=== PATIENT | male | born 1940 | race Caucasian/White ===

== ENCOUNTER 2016-06-26 13:53 | Inpatient (IN) | payer MEDICARE, OTHER ==
[~2016-06-26] VITALS: Ht 172.7 cm; Wt 118.7 kg
[2016-06-30] MEDS ORDERED: ZOVIRAX400 MG PO (15:12)
[2016-06-30] MEDS ORDERED: VFEND200 MG PO (15:13)
[2016-06-30] MEDS ORDERED: LEVAQUIN DPS500 MG PO (15:13)
[2016-06-30] MEDS ORDERED: LOPRESSOR DPS50 MG PO (15:13)
[2016-06-30] MEDS ORDERED: MAG-OX400 MG PO (15:13)
[2016-06-30] MEDS ORDERED: COLACE-DPS100 MG PO (15:14)
[2016-06-30] MEDS ORDERED: FISH OIL 1,2001 EACH PO (15:14)
[2016-06-30] MEDS ORDERED: LIPITOR80 MG PO (15:14)
[2016-06-30] MEDS ORDERED: CENTRUM SILVER1 EAC1 PO (15:14)
[2016-06-30] MEDS ORDERED: ZOFRAN8 MG PO (15:15)
[2016-06-30] MEDS ORDERED: COZAAR DPS50 MG PO (15:15)
[2016-06-30] MEDS ORDERED: FLOMAX DPS0.4 MG PO (15:15)
[2016-06-30] MEDS ORDERED: COMPAZINE10 MG PO (15:15)
[2016-06-30] MEDS ORDERED: MEGACE DPS800 MG/20 PO (15:16)
[2016-06-30] MEDS ORDERED: MIRALAX DPS17 GM PO (15:16)
[2016-06-30] MEDS ORDERED: ULTRAM DPS50 MG PO (15:16)
[2016-06-30] MEDS ORDERED: MAALOX DPS30 ML PO (15:17)
[2016-06-30] MEDS ORDERED: SURFAK DPS240 MG PO (15:17)
[2016-06-30] MEDS ORDERED: TYLENOL DPS325 MG PO (15:17)
[2016-06-30] MEDS ORDERED: NITROSTAT0.4 MG SL (15:17)
--- NOTE | 2016-07-04 07:54 | ER ---
ADMIT: 06/26/2016 RM/LOC: 432 [facility] MR#: [id number] [address] [address] RONNI MORRIS [address] [address] Emergency Room Report SEX: M AGE: 75 : 1940 DATE: 06/26/2016 TIME: 1353 hours. Please refer to my T-sheet for complete H and P. Briefly, the patient is a 75- year-old who was sent over here for a high fever. He had the flu shot. 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 He went in to Oncology Clinic with high fever, they sent him over here for our evaluation. They shea blood cultures, they shea some lab which we will not repeat because it was drawn just prior to them arriving in our ER. The patient said he just feels kind of yuck and does not feel well, a little bit of cough, otherwise he has been doing okay. He did vomit once also. PHYSICAL EXAMINATION: VITAL SIGNS: His blood pressure is 133/57, pulse 107, respirations 20, and sat 93% on room air. GENERAL: He is in no acute distress. HEENT: Grossly normal. LUNGS: Slightly coarse with a little bit of wheezes. ABDOMEN: Soft, really nontender. EXTREMITIES: He has trace edema bilaterally. NEURO: He is alert, oriented, nonfocal. EMERGENCY DEPARTMENT COURSE: We did the full sepsis pathway here including fluids, blood cultures x2 had already been sent. Influenza came back negative. EKG was sinus rhythm, rate 107, no changes. CBC was normal except white count 1.5, hemoglobin 7, and platelets 29. Chemistries normal except BUN 28, glucose 188, and creatinine 1.6. The rest of his labs are pending at this time. Antibiotics will be started since the blood cultures were drawn. He will get a 30 mL/kg of IV normal saline. He already had a liter before he arrived in our Emergency Department. We will count this and continue as his blood pressure seems to be improved here. He seems to be doing pretty well. I gave him 1 g of Tylenol and I talked Dr. Ruiz, will admit to the hospital. ASSESSMENT: 1. Neutropenic fever. 2. Pancytopenia. 3. Sepsis. 4. Oncology patient. PLAN: Admit to the hospital. Jan Hancock MD/ ritesh JOB #: [id number] CC: Seth Bray MD, Attending Physician Seth Bray MD, Family Physician
--- NOTE | 2016-07-05 09:17 | CO ---
ADMIT: 06/26/2016 RM/LOC: 432 [facility] MR#: [id number] [address] [address] RONNI MORRIS [address] [place] [address] Consultation SEX: M AGE: 75 : 1940 DATE OF CONSULTATION: 06/27/2016 ATTENDING PHYSICIAN: Seth Bray MD CONSULTING PHYSICIAN: Miguel Schafer MD REASON FOR CONSULTATION: AML, sepsis. HISTORY OF PRESENT ILLNESS: This is a pleasant, 75-year-old male, patient of mine, who was recently diagnosed with AML within the last month. He has undergone 10 days of Dacogen chemotherapy, first cycle beginning June 03, 2016, and also recently had a day 22 response bone marrow scan reveal less than 4% blasts, which was a good result. The patient was seen in clinic yesterday with documented fever of 102 degrees, elevated respiratory rate, elevated heart rate, and complaints of dry heaves. He was found to be neutropenic and thus he was admitted yesterday with neutropenic fever with concerns for sepsis. He did receive appropriate fluid resuscitation in my clinic as well as in the emergency room, approximately 4 L given and started on broad-spectrum antibiotics per sepsis protocol. Today, the patient does appear to be improved and his fever seems to be resolving. Thus far, blood cultures have remained negative and the patient has also required blood transfusions, but this is not new for him. PAST MEDICAL HISTORY: Significant for CHF, CAD, hypertension, and hyperlipidemia. MEDICATIONS: Include: 1. Acyclovir. 2. Magnesium oxide. 3. Levofloxacin. 4. Metoprolol. 5. Voriconazole. 6. Atorvastatin. 7. Centrum. 8. Docusate. 9. Fish oil. 10.Furosemide. 11.Losartan. 12.Potassium chloride. 13.Tamsulosin. 14.Zofran. 15.Megace. 16.Prochlorperazine p.r.n. 17.Tramadol p.r.n. ALLERGIES: NO KNOWN MEDICAL ALLERGIES. FAMILY HISTORY: Significant for CAD in both of his parents. Brother also had CAD and diabetes. Significant for a brother with colon cancer. ADMIT: 06/26/2016 RM/LOC: 432 [facility] MR#: [id number] [address] [address] RONNI ARDON [address] [place] [address] Consultation SEX: M AGE: 75 : 1940 SOCIAL HISTORY: The patient is a former smoker. He has quit over 15 years ago. No significant alcohol intake. Retired from [employer]. Currently living with his daughter in [place]. Formally a resident of [place], I think. REVIEW OF SYSTEMS: A complete review of systems was conducted and found to be negative except for what is mentioned above in HPI. PHYSICAL EXAMINATION: VITAL SIGNS: Temp 100.3, pulse 83, respiratory rate 20, blood pressure 117/50, and saturating 92% on room air. GENERAL: This is an elderly appearing male, resting comfortably in a chair, in his hospital room. He is alert and oriented x3. He is a good historian although slightly hard of hearing. HEENT: Pupils are equal, round, react to light. Mouth is free from oral lesions with moist mucous membranes. NECK: Shows no tracheal deviation. No cervical lymphadenopathy. LUNGS: Clear to auscultation bilaterally with normal respiratory effort. HEART: Regular rate and rhythm with no murmurs, rubs, or gallops. ABDOMEN: Soft, nontender to palpation. Nondistended. Bowel sounds are positive. EXTREMITIES: 1+ edema bilaterally in lower extremities. No clubbing, no cyanosis. MUSCULOSKELETAL: Strength is 5/5 in all extremities. No inflamed or swollen joints. NEUROLOGIC: No focal neurological deficits. Cranial nerves II through XII grossly intact. PSYCH: Mood is euthymic. Affect is full and mood congruent. SKIN: Shows various areas of ecchymosis, but no concerning pigmented or palpable lesions. LABORATORY DATA: WBC 1.8, hemoglobin 5.0, and platelets 23. CMP has abnormal BUN of 29, creatinine of 1.5, calcium 7.2, albumin 2.3, alkaline phosphatase 160, otherwise within normal limits. Blood cultures x2 no growth to date. Influenza A and B negative. IMPRESSION AND RECOMMENDATIONS: A 75-year-old male with AML admitted for neutropenic fever and sepsis. 1. AML. The patient would be due for cycle 2 of 5 day Dacogen beginning on 07/01/2016, which will be to be determined depending on his recovery from this admission. He has shown an excellent first response to palliative 10 day Dacogen initiation earlier this month. He will continue to have home health monitoring his blood counts with transfusion thresholds standard at time of hospital discharge. 2. Cytopenias secondary to AML. The patient typically has a hemoglobin threshold of 7.5, and a platelet threshold of 10 for transfusion purposes and will require all irradiated products. Today's hemoglobin is quite low ADMIT: 06/26/2016 RM/LOC: 432 [facility] MR#: [id number] [address] [place] [phone] RONNI MORRIS [address] [place] [address] Consultation SEX: M AGE: 75 : 1940 for him secondary to IV fluid dilution. There was some delay in receiving his RBCs last night due to the presence of a fever and thus transfusion was held. He has completed 1 RBCs and I will order 2 additional units today and continue to monitor while inpatient. No need for platelet transfusion as his current levels are in the 20s with no active bleeding or bruising. 3. Neutropenic fever and sepsis. I agree with current broad-spectrum antibiotics and monitoring. He has already shown improvement over the last 24 hours with appropriate fluid resuscitation. No need for pressors. We will continue supportive care following sepsis bundle protocol. Thank you for this interesting consultation. Please call with any further questions. Total time spent was 60 minutes. Miguel Schafer MD/ ritesh JOB #: [id number] CC: Seth Bray MD, Attending Physician Seth Bray MD, Family Physician
--- NOTE | 2016-07-21 08:01 | HP ---
ADMIT: 06/26/2016 RM/LOC: 432 [facility] MR#: [id number] [address] [address] RONNI MORRIS [address] [place] [address] History and Physical SEX: M AGE: 75 : 1940 DATE OF SERVICE: CHIEF COMPLAINT: Fever. HISTORY OF PRESENT ILLNESS: This is a 75-year-old white male who was recently moved to [facility], had been living in [place], had some chest congestion when on May 28 was ultimately diagnosed with acute myelogenous leukemia, was transferred to [facility] on June 03, received 10 doses of chemotherapy and then subsequently was transferred to [facility] here in town where Dr. Bray assumed the care. He was there for about a week, was discharged 1 week ago and has been living in town here with his daughter. He had been doing relatively well, a little bit of emesis here and there, occasionally in the mornings. Last night, he just felt kind of blah, did not feel good, was nauseated, had an episode of emesis, went to the [facility] this morning, had blood drawn, had a hemoglobin of 7. Dr. Schafer had recommended some IV fluids and a transfusion. When he got to the [facility], he did have a low-grade temp of a 100.3, and then spiked up to 103. He had not gotten any blood or anything yet, therefore he was transferred to the emergency room where he had a sepsis workup which essentially has been unremarkable. He does complain of a little bit of cough, did have another episode of vomiting today, but really denies any diffuse abdominal pain and he states that it was maybe a little bit of vague soreness prior to vomiting which relieved that. He has had a little bit of constipation at times as well. Therefore, he is being admitted for neutropenic fever. PAST MEDICAL HISTORY: Remarkable for AML; CHF; coronary heart disease, status post stent placement; hypertension; hyperlipidemia. CURRENT MEDICATIONS: Includes: 1. Acyclovir 400 mg b.i.d. 2. Magnesium oxide 400 mg b.i.d. 3. Levofloxacin 5 mg daily. 4. Metoprolol tartrate 50 mg b.i.d. 5. Voriconazole 200 mg b.i.d. 6. Atorvastatin 80 mg at bedtime. 7. Centrum Silver 1 tab daily. 8. Docusate sodium 100 mg b.i.d. 9. Fish oil 1200 mg daily. 10.Furosemide 40 mg daily. 11.Losartan 25 mg b.i.d. 12.Potassium chloride 40 mEq daily. 13.Potassium chloride 10 mEq at bedtime. 14.Tamsulosin 0.4 mg daily. 15.Zofran 8 mg daily. 16.Megace 20 mL daily. 17.Doxycycline 100 mg b.i.d. 18.Prochlorperazine 10 mg q.6 hours p.r.n. 19.Tramadol 50 mg q.6 hours p.r.n. ADMIT: 06/26/2016 RM/LOC: 432 [facility] MR#: [id number] [address] [place] [phone] [place] [address] History and Physical SEX: M AGE: 75 : 1940 ALLERGIES: NO KNOWN ALLERGIES. FAMILY HISTORY: Father had coronary artery disease, mother had coronary artery disease. There is a brother with coronary artery disease and diabetes. One brother with colon cancer and some sort of blood cancer. SOCIAL HISTORY: Does not smoke, has not for last 15 years. Denies any regular alcohol use. He is retired, used to work for [employer]. REVIEW OF SYSTEMS: GENERAL: Has had fevers. HEENT: No headaches, blurred vision, double vision. CARDIAC: No chest pains. PULMONARY: No shortness of breath, but has had a mild cough. GI: Has had nausea and vomiting, but no diarrhea. : No dysuria, urgency, or frequency. ENDOCRINE: No polyuria, polydipsia. PSYCH: No depression. INTEGUMENTARY: No new rashes. All others are negative. OBJECTIVE: VITAL SIGNS: Blood pressure is 130/61, pulse 97, respirations 22, temp 100.2. GENERAL: He is in no acute distress. He is alert, appropriate. HEENT: Pupils are reactive. Conjunctivae are clear. Clear nasal mucosa. Clear oropharynx. Moist mucous membranes. NECK: Soft and supple. LUNGS: Clear to auscultation with normal respiratory effort. HEART: Regular rate and rhythm. PMI is in the 5th intercostal space, midclavicular line. ABDOMEN: Soft. No focal tenderness, very unremarkable abdominal exam. EXTREMITIES: No cyanosis, no clubbing. Trace edema. SKIN: No rashes. NEUROLOGIC: Cranial nerves II through XII grossly intact. No focal deficits. LABORATORY AND X-RAY DATA: Chest x-ray showed nothing acute. This morning white count was 1.5, hemoglobin 7, platelets 29,000. Influenza A and B are negative. Urine culture is pending. INR is 1.25. Sodium 139, potassium 4.5, chloride 106, CO2 of 27, BUN 32, creatinine 1.5, glucose 118, calcium 7.3, inorganic phosphorus 3.2, total bilirubin is 0.8, total protein 6.0, albumin 2.7, alkaline phosphatase 181, AST 25, ALT 25, magnesium 1.7. CK 36, MB 0.7, relative index 1.9. Troponin I is 0.029, lactic acid is 1.7, procalcitonin was 0.33. UA showed a trace of blood with 2 rbc's, otherwise negative. ADMIT: 06/26/2016 RM/LOC: 432 [facility] MR#: [id number] [address] [facility] [address] [place] [phone] RONNI MORRIS [facility] [place] [address] History and Physical SEX: M AGE: 75 : 1940 ASSESSMENT: 1. Neutropenic fever. 2. Acute myelogenous leukemia. 3. Pancytopenia. 4. Coronary artery disease. 5. Hypertension. PLAN: We will admit, start broad-spectrum antibiotics. He has already been aggressively hydrated per sepsis protocol through the emergency room. We will slow IV down, Zofran for nausea. Dr. Schafer will be notified to manage his pancytopenia. Dr. Bray will assume care in [facility] Sid Ruiz MD/ ritesh JOB #: [id number] CC: Seth Bray, Attending Physician Seth Bray, Family Physician
[2016-08-06] MEDS ORDERED: LASIX DPS40 MG PO (10:20)
[2016-08-06] MEDS ORDERED: OMNICEF DPS300 MG PO (10:20)
[2016-08-23] MEDS ORDERED: LOPRESSOR DPS50 MG PO (17:57)
[2016-08-23] MEDS ORDERED: ZOVIRAX400 MG PO (17:57)
[2016-08-23] MEDS ORDERED: MAG-OX400 MG PO (17:57)
[2016-08-23] MEDS ORDERED: COLACE100 MG PO (17:58)
[2016-08-23] MEDS ORDERED: ATORVASTATIN CA80 MG PO (17:58)
[2016-08-23] MEDS ORDERED: VFEND200 MG PO (17:58)
[2016-08-23] MEDS ORDERED: CENTRUM SILVER1 EAC1 PO (17:58)
[2016-08-23] MEDS ORDERED: TYLENOL DPS325 MG PO (17:59)
[2016-08-23] MEDS ORDERED: COZAAR DPS50 MG PO (17:59)
[2016-08-23] MEDS ORDERED: SURFAK DPS240 MG PO (17:59)
[2016-08-23] MEDS ORDERED: LASIX DPS40 MG PO (17:59)
[2016-08-23] MEDS ORDERED: FLOMAX DPS0.4 MG PO (17:59)
[2016-08-23] MEDS ORDERED: KLOR-CON 1010 MEQ PO (18:00)
[2016-08-23] MEDS ORDERED: ASPIRIN EC81 MG PO (18:00)
[2016-08-23] MEDS ORDERED: MAGNESIUM400 M1 PO (18:00)
[2016-08-23] MEDS ORDERED: LEVAQUIN DPS500 MG PO (18:01)
[2016-08-23] MEDS ORDERED: LEXAPRO DPS20 MG PO (18:01)
[2016-08-23] MEDS ORDERED: LOTRISONE DPS45 GM TP (18:01)
--- NOTE | 2016-08-26 09:00 | DS ---
ADMIT: 06/26/2016 RM/LOC: 432 [facility] MR#: [id number] [address] [address] JULIOCESAR MORRIS [address] [place] [address] General Discharge Summary SEX: M AGE: 75 : 1940 ADMISSION DATE: 06/26/2016 DISCHARGE DATE: 06/29/2016 INDICATION FOR HOSPITALIZATION: Juliocesar is a 75-year-old, white male who had recently moved to [facility] from [place] and was admitted by Dr. Ruiz for me in my absence after receiving chemo and having neutropenic fevers during treatment for his acute myelogenous leukemia. Please see his admission H and P for the details regarding his history of present illness, past medical history, physical exam, and assessment at the time of hospitalization. HOSPITAL COURSE: On admission, the patient was appropriately evaluated and had routine labs obtained. He was started on vanco, Zosyn, and Levaquin. He was placed on reverse isolation. His home medications were confirmed and continued. Hematology was consulted to follow and medical management of his neutropenic fevers was undertaken. By June 27, the vital signs were stable with a T-max of 100.2, total protein was normal with albumin low. Liver function was normal. White count 1.8, hemoglobin of 5 with platelet count of 23,000. Blood cultures are negative. Urine culture was pending. Chest x-ray was normal. His exam was fairly unremarkable. Nutrition was formally consulted and Oncology transfused with 2 units of blood due to his severe anemia. By June 28; white count was 2.1, hemoglobin 7.5, and platelet count of 25,000. Blood and urine cultures remained negative, and he was feeling much better. By June 29; vital signs were stable, and he was afebrile. Blood cultures were negative. Urine cultures were contaminated. White count 2.6, hemoglobin 7.0, platelet count of 25,000. His vanco, Zosyn, and Levaquin were discontinued IV, and oral Levaquin was initiated, and he was felt to be stable for discharge to home. FINAL DISCHARGE DIAGNOSES: Include: 1. Neutropenic fevers, resolved, likely secondary to chemo. 2. Pancytopenia secondary to chemo. 3. Acute myelogenous leukemia. 4. Benign essential hypertension. 5. Coronary artery disease. 6. Obesity. LABORATORY AND X-RAY DATA: Includes June 29 white count of 2.6, hemoglobin 7.0, platelet count of 25,000 with June 27 white count of 1.8, hemoglobin 5.0, platelet count 23,000. On June 26, INR 1.25. On June 26, UA is normal. On June 29, sodium 143, potassium 4.0, BUN of 24, creatinine 1.1 with glucose 97. On June 26; sodium 139, potassium 4.5, BUN of 23, creatinine 1.5 with glucose 118, total protein 6.0, albumin 2.7, AST and ALT are normal 25, magnesium normal 1.7. Urine culture shows contamination. Blood cultures are negative. Chest x-ray was normal. EKG ADMIT: 06/26/2016 RM/LOC: 432 [facility] MR#: [id number] [address] [place] [id number] JULIOCESAR MORRIS [address] [place] [address] General Discharge Summary SEX: M AGE: 75 : 1940 shows sinus tach. FINAL DISCHARGE DIAGNOSES: Include: 1. Neutropenic fevers secondary to chemo. 2. Pancytopenia secondary to chemo. 3. Acute myelogenous leukemia. 4. Benign essential hypertension. 5. Hyperlipidemia. 6. Obesity. PROCEDURES: Include blood transfusion, IV antibiotics, reverse isolation to rule out sepsis evaluation. Please see the hospital record for the details. Seth Bray MD/ ritesh JOB #: [id number] CC: Seth Bray MD, Attending Physician Seth Bray MD, Family Physician
[2017-02-28] MEDS ORDERED: LOPRESSOR DPS50 MG PO (20:06)
[2017-02-28] MEDS ORDERED: ATORVASTATIN CA80 MG PO (20:06)
[2017-02-28] MEDS ORDERED: LASIX DPS40 MG PO ×2 (20:07→20:08)
[2017-02-28] MEDS ORDERED: THERA1 EACH PO (20:07)
[2017-02-28] MEDS ORDERED: COLACE100 MG PO (20:07)
[2017-02-28] MEDS ORDERED: MICRO-K DPS10 MEQ PO (20:08)
[2017-02-28] MEDS ORDERED: COLACE-DPS100 MG PO (20:09)
[2017-02-28] MEDS ORDERED: ZOFRAN DPS8 MG PO (20:09)
[2017-02-28] MEDS ORDERED: COMPAZINE10 MG PO (20:09)
[2017-02-28] MEDS ORDERED: MIRALAX PACKET17 GM PO (20:09)
[2017-02-28] MEDS ORDERED: FLOMAX DPS0.4 MG PO (20:09)
[2017-02-28] MEDS ORDERED: ZANTAC DPS150 MG PO (20:10)
[2017-02-28] MEDS ORDERED: LOMOTIL-DPS1 TAB PO (20:10)
[2017-02-28] MEDS ORDERED: AMOXICILLIN875 MG PO (20:10)
[2017-02-28] MEDS ORDERED: LEXAPRO DPS10 MG PO (20:10)
[2017-02-28] MEDS ORDERED: FEOSOL-DPS325 MG PO (20:11)
[2017-02-28] MEDS ORDERED: LEVAQUIN DPS250 MG PO (20:11)
[2017-02-28] MEDS ORDERED: COZAAR DPS25 MG PO (20:11)
== END 2016-06-29 17:49 | disposition home health service (06) | DRG 809 ==
LOC: ER 13:53 → 4PCU 15:00
PROVIDERS: ADMIT Family Medicine
PROC: 30233N1 Transfusion of Nonautologous Red Blood Cells into Peripheral Vein, Percutaneous Approach (ICD-10-PCS; principal; 2016-06-27)
DX: D70.9 Neutropenia, unspecified (principal); C92.Z0 Other myeloid leukemia not having achieved remission; I50.9 Heart failure, unspecified; D61.810 Antineoplastic chemotherapy induced pancytopenia; R50.81 Fever presenting with conditions classified elsewhere; E66.9 Obesity, unspecified; I25.10 Atherosclerotic heart disease of native coronary artery without angina pectoris; I10 Essential (primary) hypertension; E78.5 Hyperlipidemia, unspecified; Z82.49 Family history of ischemic heart disease and other diseases of the circulatory system; Z95.5 Presence of coronary angioplasty implant and graft; Z87.891 Personal history of nicotine dependence; Z68.37 Body mass index [BMI] 37.0-37.9, adult

== ENCOUNTER 2016-08-01 19:47 | Inpatient (IN) | payer MEDICARE, OTHER ==
[~2016-08-01] VITALS: Ht 172.7 cm; Wt 116.2 kg
[~2016-08-01 19:47] MED LIST: CENTRUM SILVER1 EAC1 PO; COLACE-DPS100 MG PO; COMPAZINE10 MG PO; COZAAR DPS50 MG PO; FISH OIL 1,2001 EACH PO; FLOMAX DPS0.4 MG PO; LEVAQUIN DPS500 MG PO; LIPITOR80 MG PO; LOPRESSOR DPS50 MG PO; MAALOX DPS30 ML PO; MAG-OX400 MG PO; MEGACE DPS800 MG/20 PO; MIRALAX DPS17 GM PO; NITROSTAT0.4 MG SL; SURFAK DPS240 MG PO; TYLENOL DPS325 MG PO; ULTRAM DPS50 MG PO; VFEND200 MG PO; ZOFRAN8 MG PO; ZOVIRAX400 MG PO
--- NOTE | 2016-08-03 08:17 | CO ---
ADMIT: 08/01/2016 RM/LOC: 310 [facility] MR#: [id number] [address] [facility] [address] [place] [phone] RONNI MORRIS [address] [place] [address] Consultation SEX: M AGE: 75 : 1940 DATE OF CONSULTATION: 08/02/2016 ATTENDING PHYSICIAN: Seth Bray CONSULTING PHYSICIAN: Gerald Baez MD HISTORY OF PRESENT ILLNESS: Mr. Morris is a pleasant 75-year-old white male with multiple medical problems, including history of coronary artery disease with previous stents place (two) in [place]. Also has history of obstructive sleep apnea, and is on CPAP at night which he has been on for the last three years. He also has history of "congestive heart failure" though I do not have any records yet of his most recent echocardiogram or heart function. He was recently diagnosed with acute myelogenous leukemia in late May early June. He had undergone 10 days of Dacogen chemotherapy, started June 03 through the . He was hospitalized at [facility]. He was discharged there, and returned to [facility], where he continued receiving chemotherapy under the direction of Dr. Miguel Schafer. He has been receiving Dacogen chemotherapy this past week, and presented to the emergency room last evening with fever up to 102 at home, also associated shortness of breath and significant urinary retention. In addition to the urinary retention, he is having dysuria and hematuria. Required placement of Sharpe catheter in the Emergency Department. He was seen today in consultation. In addition to the above, he was started on IV vancomycin and Zosyn which he remains on. So far, cultures are negative. His fever has resolved. He has significant anemia with a hemoglobin of 6.6, and 2 units of packed red cells have been ordered. PAST MEDICAL HISTORY: Significant for coronary artery disease. He had two stents placed in [place], [place]. Also has history of "congestive heart failure", has recently seen a shoe laster locally. He has history of hypertension, hyperlipidemia, and obstructive sleep apnea. He has been on nasal CPAP at night for the last three years. He has recent diagnosis of acute myelogenous leukemia as mentioned above. ALLERGIES: HE HAS NO KNOWN OR LISTED MEDICAL ALLERGIES. CURRENT MEDICATIONS: Reviewed in electronic medical records. SOCIAL HISTORY: He is a former smoker, quit 15 years ago. He is single. Retired from [employer]. Currently lives with his daughter here in [place]. ADMIT: 08/01/2016 RM/LOC: 310 [facility] MR#: [id number] [address] [phone] RONNI ARDON [address] [place] [address] Consultation SEX: M AGE: 75 : 1940 FAMILY HISTORY: Significant for coronary artery disease in both of his parents, and brother. Brother also had diabetes mellitus. He had another brother with history of colon cancer. REVIEW OF SYSTEMS: As above. A 12-point review of systems performed, significant positives and negatives discussed above. Additionally, he is extremely hard of hearing, does wear hearing aids. Most of the information was obtained from him as well as his daughter who has detailed records in the room and very helpful. PHYSICAL EXAMINATION: VITAL SIGNS: Currently afebrile, temperature of 97.7. Blood pressure 157/60, pulse of 83. Oxygen saturations 97%, currently on room air. GENERAL: This is a well-developed, well-nourished, obese white male, currently in no acute respiratory distress. HEENT: Pupils are equal and reactive. Nares patent. Posterior hypopharynx is clear of any acute lesions or exudates. NECK: Supple without adenopathy. Trachea midline. CHEST: Clear, with decreased diaphragm excursion secondary to obesity. HEART: Regular, slightly tachycardic. No murmur. ABDOMEN: Obese, soft, nondistended, nontender without organomegaly or masses. No guarding or rigidity noted. Bowel sounds are noted bilaterally. EXTREMITIES: No clubbing or cyanosis. He has 1+ lower extremity edema. Normal strength without any focal deficits. SKIN: Without rashes. PSYCH: He is awake, alert, and oriented with appropriate mood and affect. LABORATORY AND X-RAY DATA: Lab and x-rays were reviewed. Serum procalcitonin was 0.19. CBC with differential shows white blood cell count of 1.5, hemoglobin of 6.6 with hematocrit of 20%, platelets 35,000. Serum electrolytes, BUN and creatinine were normal. His GFR is low at 65. Lactate 0.9. Chest x-ray shows normal findings. ASSESSMENT: He was admitted with neutropenic fever, uncertain origin. Cultures are pending. He has been started on combination of vancomycin and Zosyn, and we will continue with this for now. He has significant acute shortness of breath which has resolved after resolution of the fever, and placement of a Sharpe catheter. He has acute myelogenous leukemia, currently on chemotherapy with Dacogen, and receiving his last dose of that today. He has history of coronary artery disease, and previously had stents placed on, and been previously on aspirin and Plavix, though these apparently have been held because of his pancytopenia and low platelet count. ADMIT: 08/01/2016 RM/LOC: 310 [facility] MR#: [id number] [address] [place] [id number] RONNI MORRIS [address] [place] [id number] Consultation SEX: M AGE: 75 : 1940 He has pancytopenia secondary to chemotherapy. Because of significant anemia, he has been ordered for 2 units of packed red cells today. He has bladder outlet obstruction, most likely secondary to prostatic hypertrophy. Sharpe catheter will remain in place, and we will start him on Flomax. He has history of hypertension, on medical management. PLAN: From pulmonary standpoint, he seems to be much more stable since admission. We will continue with aggressive treatments and therapies. We will continue to follow here with you and further recommendations following initial response to evaluation of treatments and therapies. Gerald Baez MD/ ritesh JOB #: [id number] CC: Seth Bray, Attending Physician Seth Bray, Family Physician
--- NOTE | 2016-08-04 07:04 | ER ---
ADMIT: 08/01/2016 RM/LOC: 310 [facility] MR#: [id number] [address] [address] RONNI MORRIS [address] [place] [address] Emergency Room Report SEX: M AGE: 75 : 1940 DATE: 08/01/2016 HISTORY OF PRESENT ILLNESS: The patient is a 75-year-old male, recently was diagnosed with AML, has a history of CHF and AFib. The patient has been followed up with the Oncology clinic and today good another Dacogen chemotherapy. The patient came to the ER with chief complaint of urinary retention, fever to 102, and feeling more short of breath. PHYSICAL EXAMINATION: VITAL SIGNS: The patient was febrile to 101, was tachycardic to 130, blood pressure was holding well with a systolic of 120s, the patient was not tachypneic. GENERAL: The patient was not in respiratory distress, alert and oriented to person, place, and time. HEENT: Head and neck; pupils were 3 mm, reactive to light bilaterally. No oropharynx erythema or exudate. Trachea midline. LUNGS: Clear bilaterally. HEART: Normal S1, S2 without any extra sounds. ABDOMEN: Soft. EXTREMITIES: No obvious swelling in the extremities. The patient states that he has not urinated for sometime and he has the urge to urinate, also complains of frequency and hesitancy. Ultrasound of the bladder showed about 250 mL of the urine. The patient got Sharpe catheter placed. The patient received Tylenol at home. The patient was started on IV fluids and sepsis workup was started. EKG shows normal sinus rhythm with tachycardia. WBC was 1.7 with hemoglobin of 7.9, and absolute neutrophil count of 200. UA was suggestive of a urinary tract infection with wbc of 197 and rbc of 2500 and bacteria was moderate. The patient had lactic acid of 1.8. The patient is already on acyclovir, levofloxacin, and voriconazole. The patient was started on the 2nd liter of IV fluid because the blood pressure, MAP to the mid 50s, which with the 2nd liter, the systolic blood pressure from 90s raised back to 115 and MAP went to 65. Considering neutropenic fever, urosepsis, the patient was started on vancomycin and Zosyn. Family Medicine was consulted and the patient was admitted for further followups and treatments of neutropenic fever, urinary retention, urosepsis, with a past medical history of AML, status post chemo. Adrien Zuniga MD/ ritesh JOB #: [id number] CC: Seth Bray MD, Attending Physician Seth Bray MD, Family Physician
--- NOTE | 2016-08-04 12:07 | HP ---
ADMIT: 08/01/2016 RM/LOC: 310 [facility] MR#: [id number] [address] [address] JULIOCESAR MORRIS [address] [place] [address] History and Physical SEX: M AGE: 75 : 1940 DATE OF SERVICE: 08/01/2016 CHIEF COMPLAINT: Fever of unknown origin. HISTORY OF PRESENT ILLNESS: Juliocesar is a 75-year-old, white male, admitted to [place] through the ER with fever of unknown origin. He is currently followed in Oncology for acute myelogenous leukemia. He has been receiving outpatient chemo. He developed significant fevers with general malaise with some gross hematuria and inability to urinate and presented to the ER where he was catheterized and started on IV Vancomycin and Zosyn and admitted for further evaluation and management. He denies any sinus pain, pressure, runny nose, sore throat, cough, shortness of breath, nausea, vomiting, or urinary symptoms other than the hematuria. He states he just was unable to pee. PAST MEDICAL HISTORY: Acute myelogenous leukemia, followed by Dr. Schafer; CHF; coronary artery disease, status post stents; hypertension; hyperlipidemia. MEDICATIONS: On admission are listed and include: 1. Acyclovir 400 mg b.i.d. 2. Mag oxide 400 mg b.i.d. 3. Levofloxacin 500 mg daily, currently on hold. 4. Metoprolol 50 mg b.i.d. 5. Voriconazole 200 mg b.i.d. 6. Atorvastatin 80 mg at bedtime. 7. Centrum Silver daily. 8. Docusate 100 mg b.i.d. 9. Fish oil 1200 mg daily. 10.Lasix 40 mg daily. 11.Losartan 25 mg b.i.d. ALLERGIES: NONE KNOWN. SOCIAL HISTORY: A 75-year-old male who does not smoke. He has been tobacco free for 15 years. He does not drink regular. He is retired and used to be a [employer] worker. FAMILY HISTORY: Includes coronary artery disease in his father and mother and brother along with diabetes and colon cancer in brothers with one brother having a blood cancer of some sort. REVIEW OF SYSTEMS: Remarkable for his bladder outlet obstruction with inability to void with need for Sharpe catheter placement along with some hematuria. Fevers to 102+ degrees as an outpatient and generalized malaise. Remainder of review of systems is negative. PHYSICAL EXAMINATION: VITAL SIGNS: Include temperature 98.4, pulse 87, ADMIT: 08/01/2016 RM/LOC: 310 [facility] MR#: [id number] [address] [address] JULIOCESAR ARDON [address] [place] [address] History and Physical SEX: M AGE: 75 : 1940 respiratory rate 26, blood pressure 150/72, pulse 96 on room air. GENERAL APPEARANCE: A 75-year-old male who is alert, oriented, in no acute distress. Lying in hospital bed. HEENT: Pupils reactive. Extraocular muscles intact. Membranes are moist. He is edentulous. NECK: Without nodes or masses. HEART: Regular without murmur. LUNGS: Clear. ABDOMEN: Obese, soft, nontender, benign. GENITOURINARY: Exam reveals Sharpe catheter in place. EXTREMITIES: Reveal trace edema. No clubbing or cyanosis. NEUROLOGIC: Exam is grossly normal including light touch, strength, and DTRs. LABORATORY AND X-RAY DATA: Include sodium 144, potassium 4.1, BUN of 22, creatinine 1.1 with glucose 113. Magnesium low at 1.4. White count 1.5, hemoglobin 6.6, with platelet count of 35,000. Lactic acid 0.9. Urine shows 197 wbc's, 2518 rbc's with moderate bacteria. Chest x-ray is normal. ASSESSMENT: Fever of unknown origin, pancytopenia likely secondary to recent chemo, acute myelogenous leukemia followed by Dr. Schafer, bladder outlet obstruction with new onset hematuria with Sharpe catheter in place, benign essential hypertension, hyperlipidemia, and hypomagnesemia. PLAN: He had been started on Vanco and Zosyn. Mag oxide has been continued and IV magnesium sulfate administered. Urology will be consulted. We will obtain a renal ultrasound. Oncology is following. We will proceed with further evaluation and management based on hospitalization. He is admitted with rule out sepsis protocol. Seth Bray MD/ ritesh JOB #: [id number] CC: Seth Bray, Attending Physician Seth Bray, Family Physician
[2016-08-06] MEDS ORDERED: LASIX DPS40 MG PO (10:20)
[2016-08-06] MEDS ORDERED: OMNICEF DPS300 MG PO (10:20)
[2016-08-23] MEDS ORDERED: LOPRESSOR DPS50 MG PO (17:57)
[2016-08-23] MEDS ORDERED: ZOVIRAX400 MG PO (17:57)
[2016-08-23] MEDS ORDERED: MAG-OX400 MG PO (17:57)
[2016-08-23] MEDS ORDERED: CENTRUM SILVER1 EAC1 PO (17:58)
[2016-08-23] MEDS ORDERED: COLACE100 MG PO (17:58)
[2016-08-23] MEDS ORDERED: VFEND200 MG PO (17:58)
[2016-08-23] MEDS ORDERED: ATORVASTATIN CA80 MG PO (17:58)
[2016-08-23] MEDS ORDERED: COZAAR DPS50 MG PO (17:59)
[2016-08-23] MEDS ORDERED: TYLENOL DPS325 MG PO (17:59)
[2016-08-23] MEDS ORDERED: SURFAK DPS240 MG PO (17:59)
[2016-08-23] MEDS ORDERED: FLOMAX DPS0.4 MG PO (17:59)
[2016-08-23] MEDS ORDERED: LASIX DPS40 MG PO (17:59)
[2016-08-23] MEDS ORDERED: ASPIRIN EC81 MG PO (18:00)
[2016-08-23] MEDS ORDERED: KLOR-CON 1010 MEQ PO (18:00)
[2016-08-23] MEDS ORDERED: MAGNESIUM400 M1 PO (18:00)
[2016-08-23] MEDS ORDERED: LEVAQUIN DPS500 MG PO (18:01)
[2016-08-23] MEDS ORDERED: LOTRISONE DPS45 GM TP (18:01)
[2016-08-23] MEDS ORDERED: LEXAPRO DPS20 MG PO (18:01)
--- NOTE | 2016-08-25 09:56 | CO ---
ADMIT: 08/01/2016 RM/LOC: 310 [facility] MR#: [id number] 2620 [facility] [address] [place] [id number] RONNI MORRIS [address] [place] [address] Consultation SEX: M AGE: 75 : 1940 DATE OF CONSULTATION: 08/02/2016 ATTENDING PHYSICIAN: Seth Bray CONSULTING PHYSICIAN: Miguel Schafer MD REASON FOR CONSULTATION: AML, fever. HISTORY OF PRESENT ILLNESS: Mr. Morris is a very pleasant 75-year-old patient of [facility], who is undergoing chemotherapy for his diagnosis of AML. He is currently cycle 3, day #5 of IV decitabine therapy. Previous cycles have resulted in norovirus infection and hospitalization with febrile neutropenia. He presented last evening with building symptoms over several hours in the evening of nausea, fever to 102, generalized malaise, and inability to urinate. Upon presentation to the emergency room, attempted placing the catheter, resulted in gross hematuria, but this has cleared up overnight. He was meeting sepsis or SIRS criteria, and thus he was bolused 3 L of normal saline, and was started on empiric IV vancomycin and Zosyn. This morning, he is feeling better and was afebrile overnight. He denies any further nausea, diaphoresis, or abdominal pains. He denies any dysuria. PAST MEDICAL HISTORY: Significant for AML, CHF, and CAD, status post stents, hypertension, and hyperlipidemia. MEDICATIONS: 1. Acyclovir 400 b.i.d. 2. Mag-oxide 400 b.i.d. 3. Levofloxacin 500 mg daily. 4. Metoprolol 50 b.i.d. 5. Voriconazole 200 mg b.i.d. 6. Atorvastatin 80 mg at bedtime. ALLERGIES: NO KNOWN ALLERGIES. SOCIAL HISTORY: The patient is from [place], [place]. Former worker for [employer]. Since the diagnosis of AML, he is now living with his daughter locally here in [place]. Former smoker. Does not usually drink. FAMILY HISTORY: Significant for CAD in both of his parents. Diabetes and colon cancer. REVIEW OF SYSTEMS: A complete review of systems was conducted and found to be negative except for what was mentioned above in HPI. PHYSICAL EXAMINATION: VITAL SIGNS: Temp 98.5, pulse 92, respiratory rate 24, blood pressure 136/55, and saturating 93% on room air. GENERAL: This is an elderly appearing male, who is a good historian. Alert and oriented x3. Resting comfortably in his hospital bed. HEENT: Pupils are equal, round, reactive to light. Mouth is free from oral ADMIT: 08/01/2016 RM/LOC: 310 [facility] MR#: [id number] [address] [address] RONNI MORRIS [address] [place] [address] Consultation SEX: M AGE: 75 : 1940 lesions. NECK: Shows trachea midline with no cervical lymphadenopathy. HEART: Regular rate and rhythm. No murmurs, rubs, or gallops. LUNGS: Clear to auscultation bilaterally. Normal respiratory effort. ABDOMEN: Soft, nontender to palpation. Bowel sounds are positive. EXTREMITIES: 1+ edema bilaterally in the lower extremities. No clubbing. No cyanosis. SKIN: Various areas of ecchymosis, but otherwise no concerning rashes or pigmented lesions. NEUROLOGIC: Cranial nerves II through XII are grossly intact. No focal deficits. MUSCULOSKELETAL: No swollen or inflamed joints. Strength is 5/5 in all extremities. PSYCH: Mood is euthymic. Affect is full and mood congruent. LABORATORY AND RADIOLOGY DATA: WBC 1.5, hemoglobin 6.6, and platelets 35. Procalcitonin 0.19, potassium 4.1, and creatinine 1.1. Glucose 113 and calcium 8.4. Chest x-ray 08/02/2016, negative portable chest. Blood cultures and urine culture are pending. IMPRESSION AND RECOMMENDATIONS: A 75-year-old male with AML on chemotherapy admitted with febrile neutropenia. 1. Acute myeloid leukemia. The patient is due for day #5 of a 28-day cycle, IV dose decitabine. I will give this to him at 44 mg and have it sent over from our clinic to complete this cycle 3. His next dose will not be due until 08/26/2016. 2. Febrile neutropenia. 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 With this new fever, one would suspect infection and thus empiric coverage with broad-spectrum antibiotics is most appropriate. Levaquin can be placed on held while he is on broad-spectrum antibiotics. We will continue the voriconazole and acyclovir prophylaxis. Await urine and blood culture results to target empiric antibiotic therapy. ADMIT: 08/01/2016 RM/LOC: 310 [facility] MR#: [id number] [address] [address] RONNI MORRIS [address] [place] [address] Consultation SEX: M AGE: 75 : 1940 3. Chronic cytopenias. The patient should have hemoglobin transfusion threshold of 7.5 equal to or less than one-unit. Also platelets should be transfused 10 or if he has bleeding or oozing. All blood products should be irradiated. Today's value of 6.6, is indicative of hemodilution with aggressive IV fluid administration, but never the less, he could benefit from 1 or 2 units of red blood cells today. Please avoid both G-CSF agents such as Neupogen and Lovenox when platelets are below 50. Thank you for this interesting consultation. Please call if any further questions arise. TOTAL TIME SPENT: 70 minutes. Miguel Schafer MD/ ritesh JOB #: [id number] CC: Seth Bray, Attending Physician Seth Bray, Family Physician
--- NOTE | 2016-09-23 17:44 | DS ---
ADMIT: 08/01/2016 RM/LOC: 310 [facility] MR#: [id number] [address] [address] JULIOCESAR MORRIS [address] [place] [address] General Discharge Summary SEX: M AGE: 75 : 1940 ADMISSION DATE: 08/01/2016 DISCHARGE DATE: 08/05/2016 INDICATION FOR HOSPITALIZATION: Juliocesar is a 75-year-old, white male, well known to myself, admitted to [place] through the ER with fever of unknown origin after receiving chemo by Oncology for acute myelogenous leukemia. He has noted he developed fevers, malaise, gross hematuria, and decreased urination. He was subsequently catheterized, started on IV vancomycin and Zosyn in the ER, and admitted for further evaluation and management. Please see his admission H and P for further details regarding his history of present illness, past medical history, physical exam, and assessment at time of hospitalization. Of note, the patient had a Sharpe catheter placed in the ER by the ER staff. He was admitted with pancytopenia secondary probably to his chemo with acute myelogenous leukemia. Additionally, a sepsis workup was done for fever of unknown origin. On admission, labs were obtained. He was started on appropriate IV antibiotic therapy. Oncology was informed of his admission. Appropriate orders, reverse isolation were ordered. Vancomycin and Zosyn therapy were initiated. Blood was typed and crossed and he was transfused with 2 units of irradiated blood products. Mag sulfate and mag oxide therapy was additionally initiated for hypomagnesemia. Renal ultrasound was obtained for his bladder outlet obstruction and hematuria. Urology was formally consulted as well. Later, his vancomycin and Zosyn were discontinued and Rocephin was added for an E. coli UTI. Sharpe was in place. Urology was on board and appropriate therapy for bladder outlet obstruction was initiated. He was transferred to telemetry on August 03. He was given an additional unit of blood on August 04. He was subsequently discharged home with home health care. DISCHARGE MEDICATIONS: Listed on his discharge med sheet. Please include a copy of his medications on discharge. He was discharged on: 1. Cefdinir 300 mg b.i.d. for 10 days with followup with Urology and Oncology. 2. Flomax 0.4 mg at bedtime for his bladder outlet obstruction and urinary retention were ordered. FOLLOWUP: He was to follow up with Dr. Seth Bray in 1-2 weeks with a CBC and BMP, and Sharpe catheter was in place at discharge with weaning parameters per Urology. LABORATORY AND X-RAY DATA: Include: August 02, white count of 1.5, hemoglobin 6.6 with a platelet count of 35,000. August 05, white count of 1.4, hemoglobin 8.9 with a platelet count of 28,000. August 01, white count 1.7, hemoglobin 7.9, platelet count of 31,000. August 01, UA shows 3+ blood, 197 wbc's, and 2518 rbc's, moderate bacteria. August 04, sodium was 145, potassium 4.2, BUN of 25, creatinine 1.1 with glucose 122. August 01, sodium 141, potassium 4.0, BUN of 25, creatinine 1.3, glucose 130, AST of 13, ALT of 22, magnesium 1.4, low. Blood cultures showed no growth on admission. Urine culture showed E. coli from August 01. Chest x-ray on admission shows no acute changes. Renal ultrasound shows no acute changes. EKG shows sinus ADMIT: 08/01/2016 RM/LOC: 310 [facility] MR#: [id number] [facility] [address] [address] JULIOCESAR MORRIS [address] [place] [address] General Discharge Summary SEX: M AGE: 75 : 1940 tachycardia on admission. FINAL DISCHARGE DIAGNOSES: Include: 1. Escherichia coli urinary tract infection with urinary retention and bladder outlet obstruction. 2. Pancytopenia secondary to chemotherapy for acute myelogenous leukemia. 3. Acute myelogenous leukemia. 4. Benign essential hypertension. 5. Hyperlipidemia. 6. Hypomagnesemia. PROCEDURES: Include Sharpe catheter placement, medical management of bladder outlet obstruction and UTI with IV antibiotics, fluid electrolyte, and magnesium replacement therapy. Procedures additionally include a rule-out sepsis workup. Please see his hospital record for the details. Seth Bray MD/ ritesh JOB #: [id number] CC: Seth Bray MD, Attending Physician Seth Bray MD, Family Physician
[2017-02-28] MEDS ORDERED: ATORVASTATIN CA80 MG PO (20:06)
[2017-02-28] MEDS ORDERED: LOPRESSOR DPS50 MG PO (20:06)
[2017-02-28] MEDS ORDERED: LASIX DPS40 MG PO ×2 (20:07→20:08)
[2017-02-28] MEDS ORDERED: THERA1 EACH PO (20:07)
[2017-02-28] MEDS ORDERED: COLACE100 MG PO (20:07)
[2017-02-28] MEDS ORDERED: MICRO-K DPS10 MEQ PO (20:08)
[2017-02-28] MEDS ORDERED: ZOFRAN DPS8 MG PO (20:09)
[2017-02-28] MEDS ORDERED: COMPAZINE10 MG PO (20:09)
[2017-02-28] MEDS ORDERED: COLACE-DPS100 MG PO (20:09)
[2017-02-28] MEDS ORDERED: FLOMAX DPS0.4 MG PO (20:09)
[2017-02-28] MEDS ORDERED: MIRALAX PACKET17 GM PO (20:09)
[2017-02-28] MEDS ORDERED: AMOXICILLIN875 MG PO (20:10)
[2017-02-28] MEDS ORDERED: ZANTAC DPS150 MG PO (20:10)
[2017-02-28] MEDS ORDERED: LOMOTIL-DPS1 TAB PO (20:10)
[2017-02-28] MEDS ORDERED: LEXAPRO DPS10 MG PO (20:10)
[2017-02-28] MEDS ORDERED: FEOSOL-DPS325 MG PO (20:11)
[2017-02-28] MEDS ORDERED: LEVAQUIN DPS250 MG PO (20:11)
[2017-02-28] MEDS ORDERED: COZAAR DPS25 MG PO (20:11)
== END 2016-08-05 14:45 | disposition home health service (06) | DRG 809 ==
LOC: ER 19:47 → 3ICU 21:20
PROVIDERS: ADMIT Family Medicine
PROC: 30233N1 Transfusion of Nonautologous Red Blood Cells into Peripheral Vein, Percutaneous Approach (ICD-10-PCS; principal; 2016-08-04)
DX: D61.810 Antineoplastic chemotherapy induced pancytopenia (principal); N39.0 Urinary tract infection, site not specified; C92.Z0 Other myeloid leukemia not having achieved remission; D70.9 Neutropenia, unspecified; I11.0 Hypertensive heart disease with heart failure; E83.42 Hypomagnesemia; I50.9 Heart failure, unspecified; N13.8 Other obstructive and reflux uropathy; B96.20 Unspecified Escherichia coli [E. coli] as the cause of diseases classified elsewhere; R50.81 Fever presenting with conditions classified elsewhere; G47.33 Obstructive sleep apnea (adult) (pediatric); N40.1 Benign prostatic hyperplasia with lower urinary tract symptoms; E66.9 Obesity, unspecified; R33.9 Retention of urine, unspecified; E78.5 Hyperlipidemia, unspecified; R00.0 Tachycardia, unspecified; I48.91 Unspecified atrial fibrillation; I25.10 Atherosclerotic heart disease of native coronary artery without angina pectoris; Z95.5 Presence of coronary angioplasty implant and graft; Z87.891 Personal history of nicotine dependence; Z82.49 Family history of ischemic heart disease and other diseases of the circulatory system

== ENCOUNTER 2016-08-18 17:04 | Inpatient (IN) | payer MEDICARE, OTHER ==
[~2016-08-18 17:04] MED LIST changes: +LASIX DPS40 MG PO; +OMNICEF DPS300 MG PO
[2016-08-23] MEDS ORDERED: ZOVIRAX400 MG PO (17:57)
[2016-08-23] MEDS ORDERED: LOPRESSOR DPS50 MG PO (17:57)
[2016-08-23] MEDS ORDERED: MAG-OX400 MG PO (17:57)
[2016-08-23] MEDS ORDERED: VFEND200 MG PO (17:58)
[2016-08-23] MEDS ORDERED: CENTRUM SILVER1 EAC1 PO (17:58)
[2016-08-23] MEDS ORDERED: COLACE100 MG PO (17:58)
[2016-08-23] MEDS ORDERED: ATORVASTATIN CA80 MG PO (17:58)
[2016-08-23] MEDS ORDERED: TYLENOL DPS325 MG PO (17:59)
[2016-08-23] MEDS ORDERED: SURFAK DPS240 MG PO (17:59)
[2016-08-23] MEDS ORDERED: FLOMAX DPS0.4 MG PO (17:59)
[2016-08-23] MEDS ORDERED: COZAAR DPS50 MG PO (17:59)
[2016-08-23] MEDS ORDERED: LASIX DPS40 MG PO (17:59)
[2016-08-23] MEDS ORDERED: MAGNESIUM400 M1 PO (18:00)
[2016-08-23] MEDS ORDERED: KLOR-CON 1010 MEQ PO (18:00)
[2016-08-23] MEDS ORDERED: ASPIRIN EC81 MG PO (18:00)
[2016-08-23] MEDS ORDERED: LEXAPRO DPS20 MG PO (18:01)
[2016-08-23] MEDS ORDERED: LOTRISONE DPS45 GM TP (18:01)
[2016-08-23] MEDS ORDERED: LEVAQUIN DPS500 MG PO (18:01)
[2017-02-28] MEDS ORDERED: LOPRESSOR DPS50 MG PO (20:06)
[2017-02-28] MEDS ORDERED: ATORVASTATIN CA80 MG PO (20:06)
[2017-02-28] MEDS ORDERED: LASIX DPS40 MG PO ×2 (20:07→20:08)
[2017-02-28] MEDS ORDERED: THERA1 EACH PO (20:07)
[2017-02-28] MEDS ORDERED: COLACE100 MG PO (20:07)
[2017-02-28] MEDS ORDERED: MICRO-K DPS10 MEQ PO (20:08)
[2017-02-28] MEDS ORDERED: MIRALAX PACKET17 GM PO (20:09)
[2017-02-28] MEDS ORDERED: FLOMAX DPS0.4 MG PO (20:09)
[2017-02-28] MEDS ORDERED: COMPAZINE10 MG PO (20:09)
[2017-02-28] MEDS ORDERED: COLACE-DPS100 MG PO (20:09)
[2017-02-28] MEDS ORDERED: ZOFRAN DPS8 MG PO (20:09)
[2017-02-28] MEDS ORDERED: LEXAPRO DPS10 MG PO (20:10)
[2017-02-28] MEDS ORDERED: ZANTAC DPS150 MG PO (20:10)
[2017-02-28] MEDS ORDERED: LOMOTIL-DPS1 TAB PO (20:10)
[2017-02-28] MEDS ORDERED: AMOXICILLIN875 MG PO (20:10)
[2017-02-28] MEDS ORDERED: LEVAQUIN DPS250 MG PO (20:11)
[2017-02-28] MEDS ORDERED: COZAAR DPS25 MG PO (20:11)
[2017-02-28] MEDS ORDERED: FEOSOL-DPS325 MG PO (20:11)
== END 2016-08-22 13:05 | disposition home health service (06) | DRG 809 ==
DX: D70.9 Neutropenia, unspecified (principal); C92.Z0 Other myeloid leukemia not having achieved remission; I50.9 Heart failure, unspecified; I11.0 Hypertensive heart disease with heart failure; E44.1 Mild protein-calorie malnutrition; R50.81 Fever presenting with conditions classified elsewhere; E83.42 Hypomagnesemia; D61.810 Antineoplastic chemotherapy induced pancytopenia; N48.1 Balanitis; N40.1 Benign prostatic hyperplasia with lower urinary tract symptoms; R33.8 Other retention of urine; E78.5 Hyperlipidemia, unspecified; I51.7 Cardiomegaly; I25.10 Atherosclerotic heart disease of native coronary artery without angina pectoris; Z87.891 Personal history of nicotine dependence; Z95.5 Presence of coronary angioplasty implant and graft; Z82.49 Family history of ischemic heart disease and other diseases of the circulatory system

== ENCOUNTER → 2016-09-11 | Outpatient (CLI) | payer MEDICARE, OTHER ==
[~2016-09-11] MED LIST changes: +AMOXICILLIN875 MG PO; +ASPIRIN EC81 MG PO; +ATORVASTATIN CA80 MG PO; +COLACE100 MG PO; +COZAAR DPS25 MG PO; +FEOSOL-DPS325 MG PO; +KLOR-CON 1010 MEQ PO; +LEVAQUIN DPS250 MG PO; +LEXAPRO DPS10 MG PO; +LEXAPRO DPS20 MG PO; +LOMOTIL-DPS1 TAB PO; +LOTRISONE DPS45 GM TP; +MAGNESIUM400 M1 PO; +MICRO-K DPS10 MEQ PO; +MIRALAX PACKET17 GM PO; +THERA1 EACH PO; +ZANTAC DPS150 MG PO; +ZOFRAN DPS8 MG PO
== END | disposition home or self-care (01) ==
LOC: RAD.S 07:09
DX: R47.81 Slurred speech (principal); R29.91 Unspecified symptoms and signs involving the musculoskeletal system; C92.00 Acute myeloblastic leukemia, not having achieved remission; G45.0 Vertebro-basilar artery syndrome